=== PATIENT | female | born 1975 ===

== ENCOUNTER 2024-05-27 11:30 | Inpatient (IN) | payer OTHER ==
[~2024-05-27] VITALS: Ht 157.5 cm; Wt 59.9 kg
[2024-05-27] MEDS ORDERED: ATORVASTATIN 10 MG (12:51)
[2024-05-27] MEDS ORDERED: PROZAC20 MG (12:51)
[2024-05-27] MEDS ORDERED: PROTONIX20 MG (12:52)
[2024-05-27] MEDS ORDERED: TEMAZEPAM30 MG (12:52)
[2024-05-27] MEDS ORDERED: [UNRECOGNIZED DRUG - OTHER] (12:52)
[2024-05-27] MEDS ORDERED: KLONOPIN (12:53)
[2024-05-27] MEDS ORDERED: DIPHENHYDRAMINE 50 MG (12:53)
[2024-05-27] MEDS ORDERED: LATUDA80 MG (12:53)
[2024-06-02] MEDS ORDERED: POVIDONE-IODINE SCRUB 118 ML BOTT TOP ONE (15:00)
[2024-06-02] MEDS ORDERED: CEFAZOLIN SODIUM 1,000 MG VIAL IV ONE (15:00)
[2024-06-02] MEDS ORDERED: ATORVASTATIN CA10 MG (15:59)
[2024-06-02] MEDS ORDERED: FLUOXETINE HCL40 MG (15:59)
[2024-06-02] MEDS ORDERED: ESTRADIOL42.5 GM (16:00)
[2024-06-02] MEDS ORDERED: MORPHINE SULFATE 4 MG/ML CARTRIDGE IV PRN (17:15)
[2024-06-02] MEDS ORDERED: RINGERS SOLUTION,LACTATED 1,000 ML IV SCH (17:15)
[2024-06-02] MEDS ORDERED: ONDANSETRON HCL 2 MG/ML VIAL IV PRN (17:15)
[2024-06-02] MEDS ORDERED: LIDOCAINE HCL 1%/EPINEPHRINE 20ML VIAL IJ ONE (17:30)
[2024-06-02] MEDS ORDERED: SURGIFLO APPLICATOR 1 EACH APPL TOP ONE (17:30)
[2024-06-02] MEDS ORDERED: HEMOSTATIC MATRIX 1 KIT KIT TOP ONE (17:30)
[2024-06-02] MEDS ORDERED: KETOROLAC TROMETHAMINE 30 MG VIAL IV NR (19:30)
[2024-06-02] MEDS ORDERED: DOCUSATE SODIUM 100MG CAP PO SCH (21:00)
[2024-06-02] MEDS ORDERED: FAMOTIDINE/PF 20 MG/2 ML VIAL IV SCH (21:00)
[2024-06-02 23:22] LABS: HEMATOCRIT 34.7 % (36.0-45.00); HEMOGLOBIN 11.7 g/dL (12.0-15.00); MEAN CELL VOLUME 91.2 fL (80.00-100.00); MEAN CORPUSCULAR HEMOGLOBIN 30.7 pg (27.00-32.0); MEAN CORPUSCULAR HGB CONC 33.7 g/dl (32.0-36.0); PLATELET COUNT 155 K/uL (150-450); RED CELL DISTRIBUTION WIDTH 13.3 % (11.5-14.5)
[2024-06-02 23:55] LABS: CALCIUM 8.9 mg/dL (8.5-10.1); CREATININE SERUM 0.86 mg/dL (0.55-1.02); GFR 70.13; POTASSIUM 4.1 mEq/L (3.5-5.1)
[2024-06-03] MEDS ORDERED: KETOROLAC TROMETHAMINE 30 MG VIAL IV SCH (01:00)
[2024-06-03] MEDS ORDERED: CEFOXITIN SODIUM 2,000 MG VIAL IV SCH (01:00)
[2024-06-03 06:49] LABS: HEMATOCRIT 32.3 % (36.0-45.00); MEAN CELL VOLUME 90.3 fL (80.00-100.00); MEAN CORPUSCULAR HEMOGLOBIN 30.8 pg (27.00-32.0); MEAN CORPUSCULAR HGB CONC 34.1 g/dl (32.0-36.0); PLATELET COUNT 140 K/uL (150-450); RED BLOOD COUNT 3.58 M/uL (4.00-6.00); RED CELL DISTRIBUTION WIDTH 13.1 % (11.5-14.5)
[2024-06-03 07:12] LABS: CALCIUM 8.5 mg/dL (8.5-10.1); CREATININE SERUM 0.96 mg/dL (0.55-1.02); GFR 61.77; POTASSIUM 4.14 mEq/L (3.5-5.1)
[2024-06-03] MEDS ORDERED: ENOXAPARIN SODIUM 40 MG/0.4 ML SYRINGE SUBCUTANEO SCH (09:00)
[2024-06-03] MEDS ORDERED: SIMETHICONE 125 MG CAPSULE PO SCH (09:00)
== END 2024-06-03 11:09 | disposition home or self-care (01) | DRG 743 ==
LOC: OB/GYN 06-02 06:45 → O/R 06-02 06:45 → SURH 06-02 07:00 → OB/GYN 06-02 18:56
PROVIDERS: ADMIT Obstetrics & Gynecology; ATTEND Obstetrics & Gynecology
PROC: 0DNW4ZZ Release Peritoneum, Percutaneous Endoscopic Approach (ICD-10-PCS; 2024-06-02)
PROC: 0UN94ZZ Release Uterus, Percutaneous Endoscopic Approach (ICD-10-PCS; 2024-06-02)
PROC: 0USG4ZZ Reposition Vagina, Percutaneous Endoscopic Approach (ICD-10-PCS; 2024-06-02)
PROC: 0UT94ZZ Resection of Uterus, Percutaneous Endoscopic Approach (ICD-10-PCS; principal; 2024-06-02 12:45)
DX: N80.03 Adenomyosis of the uterus (principal); D27.0 Benign neoplasm of right ovary; Z20.822 Contact with and (suspected) exposure to COVID-19